=== PATIENT | female | born 1970 | race African-American/Black ===

== ENCOUNTER 2017-07-07 10:36 | Emergency (ER) | payer OTHER | END 2017-07-07 11:41 | disposition home or self-care (01) | LOC: MADERS 10:36 | DX: M25.511 Pain in right shoulder (principal); J45.901 Unspecified asthma with (acute) exacerbation; K21.9 Gastro-esophageal reflux disease without esophagitis; I10 Essential (primary) hypertension; Z79.899 Other long term (current) drug therapy | CPT/HCPCS: 99283 ==

== ENCOUNTER 2020-11-07 02:27 | Emergency (ER) | payer OTHER, SELFPAY ==
[2020-11-07] MEDS ORDERED: Acetaminophen 500 MG TAB ONE (03:00)
[2020-11-07] MEDS ORDERED: predniSONE 20 MG TAB ONE (03:00)
[2020-11-07] MEDS ORDERED: Ketorolac Tromethamine 30 MG/ML VIAL ONE (03:00)
== END 2020-11-07 03:21 | disposition home or self-care (01) ==
LOC: MADERS 02:27
DX: M06.9 Rheumatoid arthritis, unspecified (principal); J45.901 Unspecified asthma with (acute) exacerbation; K21.9 Gastro-esophageal reflux disease without esophagitis; I10 Essential (primary) hypertension; Z79.899 Other long term (current) drug therapy
CPT/HCPCS: 93005; 96372; J1885; J7512